=== PATIENT | female | born 1955 | race Caucasian/White ===

== ENCOUNTER 2024-08-05 12:44 | Inpatient (IN) | payer MEDICARE ==
[2024-08-05] MEDS ORDERED: Sennosides/Docusate Sodium 50-8.6 MG Tab PO PRN (13:45)
[2024-08-05] MEDS ORDERED: Ondansetron 4 MG Tab.DIS PO PRN (13:45)
[2024-08-05] MEDS ORDERED: Albuterol 6.7 GM Inhaler INH PRN (14:17)
[2024-08-05] MEDS: oxyCODONE 5 MG Tab PO PRN (14:48)
[2024-08-05] MEDS: Gabapentin 400 MG Cap PO SCH (14:49)
[2024-08-05] MEDS: Warfarin 2.5 MG Tab PO ONE (14:49)
[2024-08-05] MEDS: DAPTOmycin 700 MG in Sodium Chloride 0.9% 50 ML IV SCH (16:25)
[2024-08-05] MEDS: Acetaminophen 325 MG Tab PO PRN (16:55)
[2024-08-05] MEDS: Albuterol 0.021% 0.63 MG/3 ML Neb Soln NEB SCH (16:55)
[2024-08-05] MEDS: Enoxaparin 120 MG/0.8 ML Syringe SUBCUT SCH (21:29)
[2024-08-05] MEDS: Famotidine 20 MG Tab PO SCH (21:29)
[2024-08-05] MEDS: Lactobacillus Rhamnosus GG (Probiotic) Cap PO SCH (21:29)
[2024-08-05] MEDS: Formoterol/Mometasone 100-5 MCG 8.8 GM Inhaler IH SCH (21:29)
[2024-08-05] MEDS: Metoprolol Tartrate 25 MG Tab PO SCH (21:29)
[2024-08-06 05:53] LABS: HEMATOCRIT 29.6 % (34.3-46.0); HEMOGLOBIN 9.1 g/dL (11.2-15.5); MEAN CORPUSCULAR HEMOGLOBIN 29.3 pg (31.6-35.5); MEAN CORPUSCULAR HGB CONC 30.7 g/dL (31.6-35.5); MEAN CORPUSCULAR VOLUME 95.2 fL (81.4-99.0); RED BLOOD CELL COUNT 3.11 M/uL (3.77-5.24); WHITE BLOOD CELL COUNT,WBC 9.3 K/uL (3.2-11.0)
[2024-08-06 06:09] LABS: INR 2.1; PROTHROMBIN TIME 20.4 sec (9.2-10.6)
[2024-08-06 06:10] LABS: CALCIUM 10.8 mg/dL (8.5-10.1); CREATININE 1.7 mg/dL (0.6-1.0); EST CRCL DRUG DOSING (CG) 30.8 mL/min; POTASSIUM,K 4.9 mmol/L (3.6-5.2)
[2024-08-06 06:12] LABS: ANION GAP 10.9 mmol/L (5.0-14.0)
[2024-08-06] MEDS ORDERED: metFORMIN 500 MG Tab PO SCH (07:30)
[2024-08-06] MEDS: metFORMIN 500 MG Tab PO SCH (07:40)
[2024-08-06] MEDS: Lisinopril 5 MG Tab PO SCH (09:38)
[2024-08-06] MEDS: Multivitamins with Iron/Calcium/Folic Acid/Minerals Tab PO SCH (09:38)
[2024-08-06] MEDS: Cyanocobalamin (Vitamin B12) 1,000 MCG Tab PO SCH (09:41)
[2024-08-06] MEDS: atorvaSTATin 20 MG Tab PO SCH (09:41)
[2024-08-06] MEDS: Furosemide 40 MG Tab PO SCH (09:41)
[2024-08-06] MEDS: buPROPion 150 MG Tab.ER PO SCH (09:42)
[2024-08-06] MEDS: Vitamin B6-pyridOXINE 50 MG Tab PO SCH (09:42)
[2024-08-06] MEDS: Warfarin 5 MG Tab PO SCH (13:27)
[2024-08-06] MEDS: Albuterol 0.021% 0.63 MG/3 ML Neb Soln NEB ONE (16:46)
[2024-08-07 06:19] LABS: INR 2.1
[2024-08-07] MEDS ORDERED: Sodium Chloride 0.9% 10 ML Syringe IV PRN (09:39)
[2024-08-07] MEDS ORDERED: Warfarin 5 MG Tab PO SCH (13:00)
[2024-08-07] MEDS: Warfarin 2.5 MG, Warfarin 5 MG PO SCH (13:13)
[2024-08-08 06:01] LABS: PROTHROMBIN TIME 19.7 sec (9.2-10.6)
[2024-08-08] MEDS: Warfarin 5 MG Tab PO SCH (12:55)
[2024-08-09 06:06] LABS: INR 2.1; PROTHROMBIN TIME 20.4 sec (9.2-10.6)
[2024-08-09] MEDS: Famotidine 20 MG Tab PO SCH (08:30)
[2024-08-10 06:08] LABS: BASOPHILS ABSOLUTE AUTO 0.05 K/uL (0.00-0.10); BASOPHILS PERCENT AUTO 0.7 % (0.1-1.3); EOSINOPHILS ABSOLUTE AUTO 0.31 K/uL (0.00-0.40); HEMATOCRIT 28.2 % (34.3-46.0); HEMOGLOBIN 8.6 g/dL (11.2-15.5); IMMATURE GRAN ABSOLUTE AUTO 0.05 K/uL (0.00-0.23); IMMATURE GRAN PERCENT AUTO 0.7 % (0.0-0.7); LYMPHOCYTES ABSOLUTE AUTO 0.64 K/uL (0.8-3.3); LYMPHOCYTES PERCENT AUTO 8.3 % (11.4-47.7); MEAN CORPUSCULAR HEMOGLOBIN 29.2 pg (31.6-35.5); MEAN CORPUSCULAR HGB CONC 30.5 g/dL (31.6-35.5); MEAN CORPUSCULAR VOLUME 95.6 fL (81.4-99.0); MONOCYTES ABSOLUTE AUTO 0.64 K/uL (0.20-0.90); MONOCYTES PERCENT AUTO 8.3 % (3.3-12.6); NEUTROPHILS ABSOLUTE AUTO 5.99 K/uL (1.0-7.6); PLATELET COUNT,PLT 165 K/uL (130-375); RED BLOOD CELL COUNT 2.95 M/uL (3.77-5.24); WHITE BLOOD CELL COUNT,WBC 7.7 K/uL (3.2-11.0)
[2024-08-10 06:25] LABS: INR 2.2; PROTHROMBIN TIME 22.1 sec (9.2-10.6)
[2024-08-10 06:28] LABS: A/G RATIO 0.7 (1.2-2.2); ALANINE AMINOTRANSFERASE,ALT 34 U/L (12-78); ALKALINE PHOSPHATASE 76 U/L (46-116); ASPARTATE AMNIOTRANSFERASE,AST 11 U/L (15-37); BILIRUBIN TOTAL 0.1 mg/dL (0.2-1.0); BLOOD UREA NITROGEN,BUN 65 mg/dL (7-18); CALCIUM 10.7 mg/dL (8.5-10.1); CARBON DIOXIDE,CO2 32 mmol/L (21-32); CHLORIDE,CL 97 mmol/L (100-108); CREATINE KINASE,CK 65 U/L (26-192); CREATININE 2.9 mg/dL (0.6-1.0); EST CRCL DRUG DOSING (CG) 18.01 mL/min; ESTIMATED GFR 17 mL/min (>60); GLUCOSE RANDOM 117 mg/dL (74-106); POTASSIUM,K 5.4 mmol/L (3.6-5.2); PROTEIN TOTAL,TP 7.1 g/dL (6.4-8.2); SODIUM,NA 136 mmol/L (140-148)
[2024-08-10 06:29] LABS: ANION GAP 12.4 mmol/L (5.0-14.0)
[2024-08-10] MEDS: Gabapentin 300 MG Cap PO SCH (09:43)
[2024-08-10] MEDS: Trolamine Salicylate/Aloe Vera 10% Crm 85 GM Tube TOP PRN (14:26)
[2024-08-11 06:04] LABS: CALCIUM 10.4 mg/dL (8.5-10.1); CREATININE 3.2 mg/dL (0.6-1.0); EST CRCL DRUG DOSING (CG) 16.32 mL/min; POTASSIUM,K 5.6 mmol/L (3.6-5.2)
[2024-08-11 06:05] LABS: INR 2.9; PROTHROMBIN TIME 27.9 sec (9.2-10.6)
[2024-08-11 06:09] LABS: ANION GAP 10.6 mmol/L (5.0-14.0)
[2024-08-11] MEDS: Warfarin 5 MG Tab PO SCH (14:44)
[2024-08-11] MEDS: DAPTOmycin 500 MG in Sodium Chloride 0.9% 50 ML IV ONE (14:44)
[2024-08-11] MEDS ORDERED: DAPTOmycin 700 MG in Sodium Chloride 0.9% 50 ML IV SCH (15:00)
[2024-08-12 06:11] LABS: CALCIUM 10.5 mg/dL (8.5-10.1); CREATININE 3.3 mg/dL (0.6-1.0); EST CRCL DRUG DOSING (CG) 15.82 mL/min; POTASSIUM,K 5.7 mmol/L (3.6-5.2)
[2024-08-12 07:49] LABS: ANION GAP 11.7 mmol/L (5.0-14.0)
[2024-08-12 08:45] LABS: INR 2.8; PROTHROMBIN TIME 27.6 sec (9.2-10.6)
[2024-08-12 09:02] LABS: HEMATOCRIT 27.6 % (34.3-46.0); HEMOGLOBIN 8.5 g/dL (11.2-15.5); MEAN CORPUSCULAR HEMOGLOBIN 29.1 pg (31.6-35.5); MEAN CORPUSCULAR HGB CONC 30.8 g/dL (31.6-35.5); MEAN CORPUSCULAR VOLUME 94.5 fL (81.4-99.0); RED BLOOD CELL COUNT 2.92 M/uL (3.77-5.24); WHITE BLOOD CELL COUNT,WBC 7.5 K/uL (3.2-11.0)
[2024-08-12] MEDS: Warfarin 2.5 MG, Warfarin 5 MG PO SCH (12:10)
== END 2024-08-12 22:09 | DRG 872 ==
LOC: JP.MS 12:54
PROVIDERS: ADMIT Internal Medicine; ATTEND Internal Medicine
DX: A41.81 Sepsis due to Enterococcus (principal); Z68.41 Body mass index [BMI] 40.0-44.9, adult; I50.32 Chronic diastolic (congestive) heart failure; N17.9 Acute kidney failure, unspecified; M46.46 Discitis, unspecified, lumbar region; R53.1 Weakness; H54.7 Unspecified visual loss; E11.9 Type 2 diabetes mellitus without complications; J44.9 Chronic obstructive pulmonary disease, unspecified; E66.01 Morbid (severe) obesity due to excess calories; E87.5 Hyperkalemia; G89.29 Other chronic pain; Z86.73 Personal history of transient ischemic attack (TIA), and cerebral infarction without residual deficits; Z95.2 Presence of prosthetic heart valve; Z96.649 Presence of unspecified artificial hip joint; Z87.891 Personal history of nicotine dependence; Z99.81 Dependence on supplemental oxygen; Z88.0 Allergy status to penicillin; Z79.899 Other long term (current) drug therapy; Z79.84 Long term (current) use of oral hypoglycemic drugs; Z88.8 Allergy status to other drugs, medicaments and biological substances; Z79.01 Long term (current) use of anticoagulants
CPT/HCPCS: 36415; 72131; 72131-26; 73700-26-RT; 73700-RT; 80048; 80053; 82550; 85025; 85027; 85610; 86140; 94640; 97110-GO; 97110-GP; 97161-GP; 97165-GO; 97530-GP; 99305; 99307; 99308; 99316; A9270-GY; J0878; J1642; J1650

== ENCOUNTER 2024-08-30 12:05 | Inpatient (IN) | payer MEDICARE ==
[2024-08-30] MEDS ORDERED: Magnesium Hydroxide 400 MG/5 ML Susp 30 ML Cup PO PRN (14:13)
[2024-08-30] MEDS ORDERED: Acetaminophen 325 MG Tab PO PRN (14:13)
[2024-08-30] MEDS ORDERED: Sennosides/Docusate Sodium 50-8.6 MG Tab PO PRN (14:13)
[2024-08-30] MEDS ORDERED: Ondansetron 4 MG Tab.DIS PO PRN (14:13)
[2024-08-30] MEDS ORDERED: Albuterol 6.7 GM Inhaler INH PRN (14:41)
[2024-08-30] MEDS: Albuterol/Ipratropium 3.0-0.5 MG/3 ML Neb Soln INH SCH (14:56)
[2024-08-30] MEDS: Acetaminophen 500 MG Tab PO SCH (16:31)
[2024-08-30] MEDS: Warfarin 5 MG Tab PO ONE (16:31)
[2024-08-30] MEDS: Diclofenac Sodium 1% Gel 100 GM Tube TOP SCH (16:32)
[2024-08-30] MEDS: Ampicillin 2 GM in Sodium Chloride 0.9% 100 ML IV SCH (16:34)
[2024-08-30] MEDS: Famotidine 20 MG Tab PO SCH (20:46)
[2024-08-30] MEDS: Multivitamins with Iron/Calcium/Folic Acid/Minerals Tab PO SCH (20:48)
[2024-08-30] MEDS: Metoprolol Tartrate 25 MG Tab PO SCH (20:48)
[2024-08-30] MEDS: Gabapentin 300 MG Cap PO SCH (20:48)
[2024-08-30] MEDS: Lactobacillus Rhamnosus GG (Probiotic) Cap PO SCH (20:50)
[2024-08-30] MEDS: oxyCODONE 5 MG Tab PO PRN (20:53)
[2024-08-31 06:31] LABS: INR 2.3; PROTHROMBIN TIME 22.3 sec (9.2-10.6)
[2024-08-31] MEDS: Formoterol/Mometasone 100-5 MCG 8.8 GM Inhaler IH SCH (07:04)
[2024-08-31] MEDS: Vitamin B6-pyridOXINE 50 MG Tab PO SCH (08:32)
[2024-08-31] MEDS: buPROPion 150 MG Tab.ER PO SCH (08:32)
[2024-08-31] MEDS: atorvaSTATin 20 MG Tab PO SCH (08:32)
[2024-08-31] MEDS: Sennosides 8.6 MG Tab PO SCH (08:32)
[2024-08-31] MEDS: Docusate Sodium 100 MG Cap PO SCH (08:32)
[2024-08-31] MEDS: Lidocaine 4% Patch TOP SCH (08:33)
[2024-08-31] MEDS: metFORMIN 500 MG Tab PO SCH (08:33)
[2024-08-31] MEDS: Cyanocobalamin (Vitamin B12) 1,000 MCG Tab PO SCH (08:33)
[2024-08-31] MEDS: Warfarin 2.5 MG Tab PO SCH (13:21)
[2024-09-01] MEDS ORDERED: Sodium Chloride 0.9% 10 ML Syringe IV PRN (09:19)
[2024-09-01] MEDS: Warfarin 5 MG Tab PO SCH (13:29)
[2024-09-03 06:04] LABS: HEMATOCRIT 29.2 % (34.3-46.0); HEMOGLOBIN 8.7 g/dL (11.2-15.5); MEAN CORPUSCULAR HGB CONC 29.8 g/dL (31.6-35.5); MEAN CORPUSCULAR VOLUME 97.3 fL (81.4-99.0); WHITE BLOOD CELL COUNT,WBC 7.4 K/uL (3.2-11.0)
[2024-09-03 06:25] LABS: INR 2.5; PROTHROMBIN TIME 24.6 sec (9.2-10.6)
[2024-09-03 06:26] LABS: ANION GAP 9.2 mmol/L (5.0-14.0); C-REACTIVE PROTEIN 6.95 mg/dL (<0.50); CALCIUM 10.5 mg/dL (8.5-10.1); CREATININE 1.7 mg/dL (0.6-1.0); EST CRCL DRUG DOSING (CG) 30.8 mL/min; POTASSIUM,K 4.4 mmol/L (3.6-5.2)
== END 2024-09-03 11:29 | disposition home or self-care (01) | DRG 872 ==
LOC: JP.MS 13:13
PROVIDERS: ADMIT Internal Medicine; ATTEND Internal Medicine
DX: R78.81 Bacteremia (principal); I50.32 Chronic diastolic (congestive) heart failure; J44.9 Chronic obstructive pulmonary disease, unspecified; M46.46 Discitis, unspecified, lumbar region; E11.9 Type 2 diabetes mellitus without complications; R53.1 Weakness; Z96.649 Presence of unspecified artificial hip joint; Z99.81 Dependence on supplemental oxygen; Z79.4 Long term (current) use of insulin; Z88.1 Allergy status to other antibiotic agents; Z88.8 Allergy status to other drugs, medicaments and biological substances; Z79.52 Long term (current) use of systemic steroids; Z79.899 Other long term (current) drug therapy; Z86.73 Personal history of transient ischemic attack (TIA), and cerebral infarction without residual deficits; Z79.01 Long term (current) use of anticoagulants; Z95.2 Presence of prosthetic heart valve
CPT/HCPCS: 36415; 80048; 85027; 85610; 86140; 94640; 97110-GP; 97161-GP; 97165-GO; 97530-GP; 99305; 99315; A9270-GY; J0290

== ENCOUNTER 2025-01-21 18:47 | Inpatient (IN) | payer MEDICARE ==
[2025-01-21 19:21] LABS: BASOPHILS ABSOLUTE AUTO 0.07 K/uL (0.00-0.10); BASOPHILS PERCENT AUTO 0.6 % (0.1-1.3); EOSINOPHILS ABSOLUTE AUTO 0.36 K/uL (0.00-0.40); EOSINOPHILS PERCENT AUTO 2.8 % (0.0-5.4); IMMATURE GRAN ABSOLUTE AUTO 0.21 K/uL (0.00-0.23); IMMATURE GRAN PERCENT AUTO 1.7 % (0.0-0.7); LYMPHOCYTES ABSOLUTE AUTO 1.07 K/uL (0.8-3.3); LYMPHOCYTES PERCENT AUTO 8.4 % (11.4-47.7); MONOCYTES ABSOLUTE AUTO 0.93 K/uL (0.20-0.90); MONOCYTES PERCENT AUTO 7.3 % (3.3-12.6); NEUTROPHILS ABSOLUTE AUTO 10.03 K/uL (1.0-7.6); NEUTROPHILS PERCENT AUTO 79.2 % (40.0-78.1); PLATELET COUNT,PLT 157 K/uL (130-375); RED BLOOD CELL COUNT 3.23 M/uL (3.77-5.24); WHITE BLOOD CELL COUNT,WBC 12.7 K/uL (3.2-11.0)
[2025-01-21 19:44] LABS: A/G RATIO 1.0 (1.2-2.2); ALANINE AMINOTRANSFERASE,ALT 35 U/L (12-78); ASPARTATE AMNIOTRANSFERASE,AST 13 U/L (15-37); BILIRUBIN TOTAL 0.3 mg/dL (0.2-1.0); BLOOD UREA NITROGEN,BUN 31 mg/dL (7-18); CARBON DIOXIDE,CO2 38 mmol/L (21-32); CHLORIDE,CL 107 mmol/L (100-108); CREATININE 1.1 mg/dL (0.6-1.0); EST CRCL DRUG DOSING (CG) 49.38 mL/min; ESTIMATED GFR 55 mL/min (>60); GLUCOSE RANDOM 140 mg/dL (74-106); POTASSIUM,K 4.8 mmol/L (3.6-5.2); PROTEIN TOTAL,TP 7.0 g/dL (6.4-8.2); SODIUM,NA 145 mmol/L (140-148); TROPONIN I HIGH SENSITIVITY 16.1 pg/mL (<=60.3)
[2025-01-21 20:47] LABS: APPEARANCE,URINE CLOUDY (CLEAR); GLUCOSE,URINE NEGATIVE (NEGATIVE); OCCULT BLOOD,URINE MODERATE (NEGATIVE)
[2025-01-21 20:56] LABS: SQUAMOUS EPITHELIAL CELLS,UR FEW /HPF
[2025-01-21 21:08] LABS: INR 1.4
[2025-01-21] MEDS: Sodium Chloride 0.9% 10 ML Syringe FLUSH PRN (21:32)
[2025-01-21] MEDS ORDERED: Naloxone 0.4 MG/ML SDV IVPUSH PRN (23:36)
[2025-01-22] MEDS ORDERED: Insulin Lispro 100 Unit/ML 3 ML KwikPen SUBCUT SCH (01:55)
[2025-01-22] MEDS ORDERED: Albuterol 0.083% 2.5 MG/3 ML Neb Soln NEB PRN (01:55)
[2025-01-22] MEDS ORDERED: TIRZEPATIDE 7.5 MG/0.5 ML SQ SCH (01:55)
[2025-01-22] MEDS ORDERED: Sodium Chloride 0.9% 10 ML Syringe FLUSH PRN (01:55)
[2025-01-22] MEDS ORDERED: Ondansetron 4 MG/2 ML SDV IV PRN (01:55)
[2025-01-22 05:41] LABS: BASOPHILS ABSOLUTE AUTO 0.04 K/uL (0.00-0.10); BASOPHILS PERCENT AUTO 0.3 % (0.1-1.3); EOSINOPHILS ABSOLUTE AUTO 0.04 K/uL (0.00-0.40); EOSINOPHILS PERCENT AUTO 0.3 % (0.0-5.4); IMMATURE GRAN ABSOLUTE AUTO 0.15 K/uL (0.00-0.23); IMMATURE GRAN PERCENT AUTO 1.2 % (0.0-0.7); LYMPHOCYTES ABSOLUTE AUTO 0.63 K/uL (0.8-3.3); LYMPHOCYTES PERCENT AUTO 5.1 % (11.4-47.7); MONOCYTES ABSOLUTE AUTO 0.78 K/uL (0.20-0.90); MONOCYTES PERCENT AUTO 6.3 % (3.3-12.6); NEUTROPHILS ABSOLUTE AUTO 10.72 K/uL (1.0-7.6); NEUTROPHILS PERCENT AUTO 86.8 % (40.0-78.1); PLATELET COUNT,PLT 132 K/uL (130-375); RED BLOOD CELL COUNT 3.20 M/uL (3.77-5.24); WHITE BLOOD CELL COUNT,WBC 12.4 K/uL (3.2-11.0)
[2025-01-22 05:57] LABS: BLOOD UREA NITROGEN,BUN 25.0 mg/dL (7-18); CARBON DIOXIDE,CO2 39.0 mmol/L (21-32); CHLORIDE,CL 107.0 mmol/L (100-108); CREATININE 1.2 mg/dL (0.6-1.0); EST CRCL DRUG DOSING (CG) 45.44 mL/min; ESTIMATED GFR 49.0 mL/min (>60); GLUCOSE RANDOM 153.0 mg/dL (74-106); INR 1.3; POTASSIUM,K 4.6 mmol/L (3.6-5.2); SODIUM,NA 149.0 mmol/L (140-148)
[2025-01-22] MEDS ORDERED: Pharmacy Consult Order SCH (09:00)
[2025-01-22] MEDS: Vitamin B6-pyridOXINE 50 MG Tab PO SCH (10:39)
[2025-01-22] MEDS: buPROPion 150 MG Tab.ER PO SCH (10:40)
[2025-01-22] MEDS: Nystatin Topical Powder 15 GM Bottle TOP SCH (10:41)
[2025-01-22] MEDS: Formoterol/Mometasone 100-5 MCG 8.8 GM Inhaler IH SCH (10:49)
[2025-01-22] MEDS: FLU (Fluad Triv) 25-26 (65UP)/MF59C/PF 45 MCG/0.5 ML Syringe IM ONE (11:04)
[2025-01-22] MEDS: Multivitamins with Iron/Calcium/Folic Acid/Minerals Tab PO SCH (21:01)
[2025-01-23 05:20] LABS: PLATELET COUNT,PLT 134.0 K/uL (130-375); RED BLOOD CELL COUNT 3.26 M/uL (3.77-5.24); WHITE BLOOD CELL COUNT,WBC 11.4 K/uL (3.2-11.0)
[2025-01-23 05:35] LABS: BLOOD UREA NITROGEN,BUN 26.0 mg/dL (7-18); CARBON DIOXIDE,CO2 42.0 mmol/L (21-32); CHLORIDE,CL 105.0 mmol/L (100-108); CREATININE 1.0 mg/dL (0.6-1.0); EST CRCL DRUG DOSING (CG) 54.53 mL/min; ESTIMATED GFR 61.0 mL/min (>60); GLUCOSE RANDOM 133.0 mg/dL (74-106); POTASSIUM,K 4.6 mmol/L (3.6-5.2); SODIUM,NA 148.0 mmol/L (140-148)
[2025-01-23 05:36] LABS: INR 1.3
[2025-01-23] MEDS: Ondansetron 4 MG Tab.DIS PO PRN (09:03)
[2025-01-24 05:26] LABS: PLATELET COUNT,PLT 122.0 K/uL (130-375); RED BLOOD CELL COUNT 2.94 M/uL (3.77-5.24); WHITE BLOOD CELL COUNT,WBC 9.1 K/uL (3.2-11.0)
[2025-01-24 05:37] LABS: BLOOD UREA NITROGEN,BUN 32.0 mg/dL (7-18); CARBON DIOXIDE,CO2 42.0 mmol/L (21-32); CHLORIDE,CL 103.0 mmol/L (100-108); CREATININE 1.2 mg/dL (0.6-1.0); EST CRCL DRUG DOSING (CG) 45.44 mL/min; ESTIMATED GFR 49.0 mL/min (>60); GLUCOSE RANDOM 124.0 mg/dL (74-106); POTASSIUM,K 4.7 mmol/L (3.6-5.2); SODIUM,NA 144.0 mmol/L (140-148)
[2025-01-24 08:40] LABS: INR 2.1
[2025-01-24 09:37] LABS: BASE EXCESS VENOUS 11.7 mm/L; BICARBONATE,VENOUS 37.9 mmol/L; O2 SATURATION VENOUS 90.7; OXYHEMOGLOBIN 86.1 %; PCO2 VENOUS 63.2 mm/Hg; PH,VENOUS 7.395 (7.350-7.450); PO2 VENOUS 58.0 mm/Hg; TOTAL HEMOGLOBIN 8.5 g/dL (12.0-16.0)
[2025-01-25 09:40] LABS: INR 2.0
[2025-01-26 08:50] LABS: INR 2.0
[2025-01-27] MEDS: Magnesium Hydroxide 400 MG/5 ML Susp 30 ML Cup PO PRN (07:53)
[2025-01-28] MEDS: Sennosides/Docusate Sodium 50-8.6 MG Tab PO PRN (08:07)
[2025-01-28 09:27] LABS: INR 1.5
[2025-01-29 08:29] LABS: INR 1.3
[2025-01-30 08:30] LABS: INR 1.3
[2025-01-31 05:54] LABS: INR 1.5
== END 2025-01-31 13:15 | DRG 562 ==
LOC: JP.ED 18:47 → JP.MS 23:39
PROVIDERS: ADMIT Nurse Practitioner; ATTEND Internal Medicine
DX: S82.832A Other fracture of upper and lower end of left fibula, initial encounter for closed fracture (principal); N30.01 Acute cystitis with hematuria; S72.115A Nondisplaced fracture of greater trochanter of left femur, initial encounter for closed fracture; I50.9 Heart failure, unspecified; N30.00 Acute cystitis without hematuria; G93.49 Other encephalopathy; Z68.41 Body mass index [BMI] 40.0-44.9, adult; I50.32 Chronic diastolic (congestive) heart failure; E66.01 Morbid (severe) obesity due to excess calories; J44.9 Chronic obstructive pulmonary disease, unspecified; W18.30XA Fall on same level, unspecified, initial encounter; H54.7 Unspecified visual loss; M54.9 Dorsalgia, unspecified; G89.29 Other chronic pain; E11.9 Type 2 diabetes mellitus without complications; Z96.649 Presence of unspecified artificial hip joint; Z99.81 Dependence on supplemental oxygen; Z88.8 Allergy status to other drugs, medicaments and biological substances; Z79.899 Other long term (current) drug therapy; Z86.73 Personal history of transient ischemic attack (TIA), and cerebral infarction without residual deficits; Z79.01 Long term (current) use of anticoagulants; Z79.84 Long term (current) use of oral hypoglycemic drugs; Z95.2 Presence of prosthetic heart valve
CPT/HCPCS: 36415; 70450; 71250; 73562 ×2; 73610 ×2; 74176; 80053; 81001; 83605; 84484; 85025; 85610; 87040 ×2; 87086; 87088; 87186; 93005; 93010; 96365; 99285 ×2; J0696; 73502-26-LT; 73502-LT; 80048; 82803; 82947; 85027; 90653; 94640; 97110-GO; 97110-GP; 97129-GN; 97130-GN; 97162-GP; 97165-GO; 99223; 99232; 99233; 99239; A9270-GY; G0008; J1171; J1650; J7030; Q0162